=== PATIENT | male | born 1980 ===

== ENCOUNTER 2022-06-30 01:32 | Emergency (ER) | payer SELFPAY ==
[~2022-06-30] VITALS: Ht 177.8 cm; Wt 77.2 kg
[2022-06-30 01:32] VITALS: BP 124/85
[2022-06-30] MEDS ORDERED: TETRACAINE HCL 0.5% OPTH(EYE) SOLN 4ML LEFTEYE ONE (03:15)
[2022-06-30] MEDS ORDERED: FLUORESCEIN SOD OPTH TEST STRIP LEFTEYE ONE (03:15)
[2022-06-30] MEDS ORDERED: CIPR250T3 PO (04:48)
[2022-06-30] MEDS ORDERED: CIP03OS LEFTEYE (04:48)
== END 2022-06-30 05:00 | disposition home or self-care (01) ==
LOC: EDBD 01:32 → ER 01:32
DX: S05.02XA Injury of conjunctiva and corneal abrasion without foreign body, left eye, initial encounter (principal); E11.9 Type 2 diabetes mellitus without complications; E78.5 Hyperlipidemia, unspecified; X58.XXXA Exposure to other specified factors, initial encounter; Y93.89 Activity, other specified; Y92.89 Other specified places as the place of occurrence of the external cause; Y99.8 Other external cause status